=== PATIENT | male | born 1935 | race Caucasian/White ===

== ENCOUNTER → 2016-10-06 | Outpatient (CLI) | payer MEDICARE, OTHER ==
--- NOTE | ~2016-10-06 | PUL ---
PATIENT'S NAME: EMMA CORTES AGE: 81 Y [address] ROOM: [place] [id number] LOCATION: [facility] ADMIT DATE: 10/06/2016 Pulmonary DISCHARGE DATE: FAMILY PHYSICIAN: NIGEL TERAN MD ATTENDING PHYSICIAN: JERMAINE AC NAME OF PROCEDURE: Home sleep test DATE OF PROCEDURE: 10/06/16 TECH: Phuong Miner [facility] SUMMARY: The patient underwent home sleep testing using a type III device and was studied for 5 hours 44 minutes. In that time there were 83 obstructive apneas, 13 central apneas and 4 hypopneas for an apnea/hypopnea index moderately elevated at 17.4 events per hour. Oxygen saturations ranged from 77- 95%. Heart rate ranged from 40-90 beats per minute. IMPRESSION: Moderate obstructive sleep apnea. PLAN: Patient will receive results from the ordering provider. COLLEEN ROMERO MD [facility]/ /[id number] dtt: 10/12/16 1455 , Colleen Romero dtd: 10/11/16 1638
== END | disposition disaster alternative care site (69) ==
LOC: GSLP 09-29 09:46
DX: R40.0 Somnolence (principal); G47.33 Obstructive sleep apnea (adult) (pediatric)
CPT/HCPCS: G0399